=== PATIENT | female | born 1985 | race Caucasian/White ===

== ENCOUNTER 2018-05-10 14:01 | Emergency (ER) | payer OTHER ==
[~2018-05-10] VITALS: Ht 167.6 cm; Wt 89.4 kg
[~2018-05-10 14:01] MED LIST: ABILIFY 5 MG TAB5 MG PO; COUMADIN 2 MG TA2 M1 PO; COUMADIN 5 MG TA5 MG PO; COUMADIN6 MG PO; DELSYM COU30 MG/5 M1 PO; DOXYCYCLINE 10100 M1 PO; DOXYCYCLINE 10100 MG PO; ENDOCET 7.5-321 EACH PO; LOVENOX; LOVENOX SQ; NORCO 5-325 TA1 EACH PO; NORCO 7.5-3251 EACH PO; ULTRAM 50MG TAB50 MG PO; XANAX 0.5 MG0.5 M1 PO; XANAX 0.5 MG0.5 MG PO; ZANAFLEX4 M1 PO
[2018-05-10] MEDS ORDERED: CELEXA40 MG PO (14:15)
[2018-05-10 14:27] LABS: ABSOLUTE BASOPHILS 0.1 thou/uL (0.0-0.2); ABSOLUTE EOSINOPHILS 0.1 thou/uL (0.0-0.7); ABSOLUTE LYMPHOCYTES 1.9 thou/uL (0.8-5.3); ABSOLUTE MONOCYTES 0.5 thou/uL (0.0-1.2); ABSOLUTE NEUTROPHILS 4.7 thou/uL (1.6-8.1); BASOPHILS 1.2 %; EOSINOPHILS 1.5 %; HEMATOCRIT 33.9 % (37.0-47.0); HEMOGLOBIN 11.2 gm/dL (12.0-15.0); LYMPHOCYTES 26.1 %; MCH 26.7 pg (26.0-34.0); MONOCYTES 6.5 %; MPV 8.4 fl. (7.2-11.1); NUCLEATED RBCS 0 /100WBC; PLATELET COUNT* 216 thou/uL (150-400); POLYS 64.7 %; RBC 4.18 mil/uL (4.20-5.00); RDW-CV 16.4 % (10.5-14.5); WBC 7.2 thou/uL (4.0-11.0)
[2018-05-10 14:35] LABS: URINE BILIRUBIN NEGATIVE (Negative); URINE BLOOD 3+ (Negative); URINE CLARITY CLEAR; URINE COLOR YELLOW; URINE GLUCOSE-RANDOM NEGATIVE (Negative); URINE KETONES NEGATIVE (Negative); URINE LEUKOCYTES-REFLEX NEGATIVE (Negative); URINE NITRITE-REFLEX NEGATIVE (Negative); URINE PROTEIN 2+ (Negative); URINE SPECIFIC GRAVITY 1.015 (1.005-1.030); URINE UROBILINOGEN 0.2 E.U./dl (0.2-1.0)
[2018-05-10 14:38] LABS: ANION GAP 8 mmol/L (7-16); BUN 6 mg/dL (7-18); CALCIUM 8.8 mg/dL (8.5-10.1); CHLORIDE 103 mmol/L (98-107); CO2 28 mmol/L (21-32); CREATININE 0.8 mg/dL (0.6-1.3); GLUCOSE 89 mg/dL (70-99); POTASSIUM 3.7 mmol/L (3.5-5.1); SODIUM 139 mmol/L (136-145)
[2018-05-10 14:44] LABS: AMP/METHAMP POSITIVE (Negative); BARBITURATES Negative (Negative); BENZODIAZEPINES Negative (Negative); COCAINE Negative (Negative); METHADONE Negative (Negative); OPIATES Negative (Negative); PCP Negative (Negative); THC Negative (Negative)
[2018-05-10 14:45] LABS: SQUAMOUS 0-3 Few /LPF (0-3); URINE WBC-REFLEX 0-5 Rare /HPF (0-5)
[2018-05-10 14:46] LABS: BACTERIA-REFLEX 1-9 Few /HPF (None Seen); CASTS None Seen /LPF (None Seen); CRYSTALS None Seen /LPF (None Seen); MUCUS 0-3 Light strn/LPF (None Seen); URINE RBC 3-10 Few /HPF (0-2)
[2018-05-10 14:52] LABS: ALBUMIN 3.1 g/dL (3.4-5.0); ALKALINE PHOSPHATASE 107 U/L (46-116); CK-MB MASS 1.7 ng/mL (<0.5-3.6); SGOT 21 U/L (15-37); SGPT 25 U/L (30-65); TOTAL BILIRUBIN 0.3 mg/dL (<0.1-1.0); TOTAL PROTEIN 6.5 g/dL (6.4-8.2); TROPONIN-I LEVEL <0.06 ng/mL (<0.06)
[2018-05-10 15:54] VITALS: BP 155/83
[2018-05-10] MEDS ORDERED: ENOXAPARIN150 MG/11 SUBQ (15:54)
--- NOTE | 2018-05-11 10:30 | EKG ---
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
== END 2018-05-10 15:57 | disposition home or self-care (01) ==
LOC: M.ERS 14:01
PROVIDERS: Nurse Practitioner Family
DX: I26.99 Other pulmonary embolism without acute cor pulmonale (principal); F17.210 Nicotine dependence, cigarettes, uncomplicated; Z98.890 Other specified postprocedural states; Z88.5 Allergy status to narcotic agent

== ENCOUNTER 2019-02-27 20:22 | Emergency (ER) | payer OTHER ==
[~2019-02-27] VITALS: Ht 172.7 cm; Wt 90.7 kg
[~2019-02-27 20:22] MED LIST changes: +CELEXA40 MG PO; +ENOXAPARIN150 MG/11 SUBQ
[2019-02-27] MEDS ORDERED: KEFLEX500 M1 PO (21:01)
[2019-02-27 21:38] VITALS: BP 158/98
== END 2019-02-27 21:39 | disposition home or self-care (01) ==
LOC: M.ERS 20:22
DX: S81.811A Laceration without foreign body, right lower leg, initial encounter (principal); F17.210 Nicotine dependence, cigarettes, uncomplicated; Z98.890 Other specified postprocedural states; Z86.711 Personal history of pulmonary embolism; Z88.5 Allergy status to narcotic agent; W26.8XXA Contact with other sharp object(s), not elsewhere classified, initial encounter; Y93.89 Activity, other specified; Y92.89 Other specified places as the place of occurrence of the external cause; Y99.8 Other external cause status

== ENCOUNTER 2019-04-12 17:47 | Emergency (ER) | payer OTHER ==
[~2019-04-12] VITALS: Ht 152.4 cm; Wt 89.4 kg
[~2019-04-12 17:47] MED LIST changes: +KEFLEX500 M1 PO
[2019-04-12] MEDS ORDERED: COUMADIN7.5 MG PO (17:55)
[2019-04-12 18:24] LABS: ABSOLUTE BASOPHILS 0.1 thou/uL (0.0-0.2); ABSOLUTE EOSINOPHILS 0.1 thou/uL (0.0-0.7); ABSOLUTE LYMPHOCYTES 1.7 thou/uL (0.8-5.3); ABSOLUTE MONOCYTES 0.6 thou/uL (0.0-1.2); ABSOLUTE NEUTROPHILS 6.6 thou/uL (1.6-8.1); BASOPHILS 0.6 %; EOSINOPHILS 1.1 %; HEMATOCRIT 39.6 % (37.0-47.0); LYMPHOCYTES 19.2 %; MCH 28.2 pg (26.0-34.0); MCHC 32.8 g/dL (28.0-37.0); MONOCYTES 7.1 %; MPV 9.6 fl. (7.2-11.1); NUCLEATED RBCS 0 /100WBC; PLATELET COUNT* 207 thou/uL (150-400); RDW-CV 16.3 % (10.5-14.5); WBC 9.1 thou/uL (4.0-11.0)
[2019-04-12 18:31] LABS: ANION GAP 9 mmol/L (7-16); BUN 11 mg/dL (7-18); CALCIUM 8.9 mg/dL (8.5-10.1); CHLORIDE 105 mmol/L (98-107); CO2 27 mmol/L (21-32); CREATININE 0.7 mg/dL (0.6-1.3); GLUCOSE 86 mg/dL (70-99); POTASSIUM 4.5 mmol/L (3.5-5.1); SODIUM 141 mmol/L (136-145)
[2019-04-12 18:35] LABS: APTT 32.1 Seconds (25.0-31.3); INR 1.3; PROTIME 13.4 Seconds (9.20-11.50)
[2019-04-12 18:40] LABS: ALBUMIN 3.4 g/dL (3.4-5.0); ALKALINE PHOSPHATASE 85 U/L (46-116); SGOT 15 U/L (15-37); SGPT 23 U/L (30-65); TOTAL BILIRUBIN 0.1 mg/dL (<0.1-1.0); TOTAL PROTEIN 7.1 g/dL (6.4-8.2); TROPONIN-I LEVEL <0.06 ng/mL (<0.06)
[2019-04-12] MEDS ORDERED: CLEOCIN HCL300 MG PO (21:32)
[2019-04-12] MEDS ORDERED: NORCO 5-325 TA1 EACH PO (21:32)
[2019-04-12] MEDS ORDERED: CLEOCIN HCL150 MG PO (21:44)
[2019-04-12 22:22] VITALS: BP 140/88
--- NOTE | 2019-04-13 13:01 | EKG ---
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: Avtar HERNANDEZ : 1985 Requested By: Ines Ly Order Number: [id number] MD: Asif Churchill Measurements Intervals [place] Rate: 82 P: 39 NE: 146 QRS: 11 QRSD: 99 T: 16 QT: 387 QTc: 452 Interpretive Statements Sinus rhythm Compared to ECG 05/10/2018 14:28:17 No significant changes also been counseled is for atypical chest pain Electronically Signed On 04-13-2019 13:01:31 CDT by Asif Churchill [email or web address] <ELECTRONICALLY SIGNED> By: Asif Churchill MD, [facility] 04/13/19 1301 [id number] 38 Asif Churchill MD, FACC /EPI
== END 2019-04-12 22:25 | disposition home or self-care (01) ==
LOC: M.ERS 17:47
PROVIDERS: Nurse Practitioner Family
DX: S00.06XA Insect bite (nonvenomous) of scalp, initial encounter (principal); L03.213 Periorbital cellulitis; R79.1 Abnormal coagulation profile; R07.89 Other chest pain; F17.210 Nicotine dependence, cigarettes, uncomplicated; Z86.711 Personal history of pulmonary embolism; Z98.890 Other specified postprocedural states; Z88.5 Allergy status to narcotic agent; W57.XXXA Bitten or stung by nonvenomous insect and other nonvenomous arthropods, initial encounter; Y93.89 Activity, other specified; Y92.89 Other specified places as the place of occurrence of the external cause; Y99.8 Other external cause status